=== PATIENT | male | born 1960 | race Caucasian/White ===

== ENCOUNTER 2017-03-12 06:31 | Day surgery (SDC) | payer OTHER ==
[2017-03-11 15:05] VITALS: BMI 32.5
[2017-03-12] VITALS (13 sets, daily range): BP systolic 105–117; BP diastolic 76–85; PULSE 72–76; RESP 12–20; Ht 175.3 cm; Wt 100.3 kg
[~2017-03-12] VITALS: Ht 175.3 cm; Wt 100.3 kg
[~2017-03-12 06:31] MED LIST: AMLO5TAB4 PO; LORA5TAB4 PO; LOSA100T47 PO; METF500T PO; SIMV20TA PO
[2017-03-12] MEDS ORDERED: ONDANSETRON 4 MG INJ IV PRN (09:00)
[2017-03-12] MEDS ORDERED: METOCLOPRAMIDE 10 MG INJ IV PRN (09:00)
[2017-03-12] MEDS ORDERED: FENTAnyl 50 MCG/ML VIAL IV PRN ×2 (09:00)
[2017-03-12] MEDS ORDERED: HYDROmorphONE (0.2 MG/ML) 10ML SYG IV PRN ×2 (09:00)
[2017-03-12] MEDS ORDERED: LABETALOL HCL 20MG INJ IV PRN (09:00)
[2017-03-12] MEDS ORDERED: MEPERIDINE 25 MG INJ IV PRN (09:00)
[2017-03-12] MEDS ORDERED: DIPHENHYDRAMINE 50 MG INJ IV PRN (09:00)
--- NOTE | 2017-03-12 09:05 | HPN ---
Date/Time of Note Date/Time of Note DATE: 03/12/17 TIME: 09:05 Interval H&P Admission Note Pt. seen H&P reviewed: No system changes MIHAI PRYOR DPM Mar 12, 2017 09:05
[2017-03-12] MEDS ORDERED: POVIDONE IODINE 10% 28.4 GM OINT ONE (09:06)
[2017-03-12] MEDS ORDERED: BUPIVACAINE 0.5% (SDV) 30 ML INJ ONE (09:06)
[2017-03-12] MEDS ORDERED: BUPIVACAINE 0.5% (MPF) 30 ML INJ EPI ONE (09:40)
[2017-03-12] MEDS ORDERED: SUCCINYLCHOLINE CHLORIDE 100 MG/5 ML SYG IV ONE (09:49)
[2017-03-12] MEDS ORDERED: LIDOCAINE 2% (SDV) 5 ML INJ ONE (09:49)
[2017-03-12] MEDS ORDERED: CEFAZOLIN 1 GM INJ ONE (09:49)
[2017-03-12] MEDS ORDERED: ROCURONIUM 50 MG INJ ONE (09:49)
[2017-03-12] MEDS ORDERED: PROPOFOL 20 ML ONE (09:49)
[2017-03-12] MEDS ORDERED: FENTAnyl 50 MCG/ML VIAL ONE (09:49)
[2017-03-12] MEDS ORDERED: SUGAMMADEX SODIUM 200 MG/2 ML VIAL IV ONE (09:50)
--- NOTE | 2017-03-12 10:15 | SIPON ---
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
--- NOTE | 2017-03-12 10:15 | SIPON ---
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
--- NOTE | 2017-03-12 10:15 | SIPON ---
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
--- NOTE | 2017-03-12 13:17 | PREOPHP ---
DATE OF ADMISSION: 03/12/2017 HISTORY OF PRESENT ILLNESS: The patient is being admitted to the hospital for elective foot surgery. Palliative treatment, unsuccessful. The patient has been explained surgery, complications and alternatives. The patient is having pain on the plantar surface of the hallux on the right foot. The patient states that he is not allergic to any medicine. He taking medicine for blood pressure and cholesterol, diabetes. No heart or lung, liver, kidney, thyroid problems, and negative for alcohol. Does not smoke. See any other pertinent history in upper extremity physical exam, by Dr. Stuart. Lower extremity physical exam shows a DP equal and regular. Neurological negative for pathology. Dermatological negative for pathology. Musculoskeletal, x-ray findings show plantar exostosis excess rebone IP joint hallux, right. FINAL DIAGNOSIS: Accessory bone with exostosis, interphalangeal joint, hallux, right. Dictated By: Kelvin Santana DPM /[email or web address]/kendrick /Document#: [id number] EMILY
--- NOTE | 2017-03-12 13:17 | PREOPHP ---
DATE OF ADMISSION: 03/12/2017 HISTORY OF PRESENT ILLNESS: The patient is being admitted to the hospital for elective foot surgery. Palliative treatment, unsuccessful. The patient has been explained surgery, complications and alternatives. The patient is having pain on the plantar surface of the hallux on the right foot. The patient states that he is not allergic to any medicine. He taking medicine for blood pressure and cholesterol, diabetes. No heart or lung, liver, kidney, thyroid problems, and negative for alcohol. Does not smoke. See any other pertinent history in upper extremity physical exam, by Dr. Stuart. Lower extremity physical exam shows a DP equal and regular. Neurological negative for pathology. Dermatological negative for pathology. Musculoskeletal, x-ray findings show plantar exostosis excess rebone IP joint hallux, right. FINAL DIAGNOSIS: Accessory bone with exostosis, interphalangeal joint, hallux, right. Dictated By: Kelvin Santana DPM /[email or web address]/kendrick /Document#: [id number] EMILY
--- NOTE | 2017-03-12 13:17 | PREOPHP ---
DATE OF ADMISSION: 03/12/2017 HISTORY OF PRESENT ILLNESS: The patient is being admitted to the hospital for elective foot surgery. Palliative treatment, unsuccessful. The patient has been explained surgery, complications and alternatives. The patient is having pain on the plantar surface of the hallux on the right foot. The patient states that he is not allergic to any medicine. He taking medicine for blood pressure and cholesterol, diabetes. No heart or lung, liver, kidney, thyroid problems, and negative for alcohol. Does not smoke. See any other pertinent history in upper extremity physical exam, by Dr. Stuart. Lower extremity physical exam shows a DP equal and regular. Neurological negative for pathology. Dermatological negative for pathology. Musculoskeletal, x-ray findings show plantar exostosis excess rebone IP joint hallux, right. FINAL DIAGNOSIS: Accessory bone with exostosis, interphalangeal joint, hallux, right. Dictated By: Kelvin Santana DPM /[email or web address]/kendrick /Document#: [id number] EMILY
--- NOTE | 2017-03-12 13:31 | OPR ---
DATE OF OPERATION: 03/12/2017 PREOPERATIVE DIAGNOSIS: Accessory bone with exostosis interphalangeal joint hallux, right. POSTOPERATIVE DIAGNOSIS: Accessory bone with exostosis interphalangeal joint hallux, right. SURGERY: Partial ostectomy IP joint plantar hallux right. SURGEON: Kelvin Santana DPM OPERATIVE PROCEDURE: The patient was brought to the surgical suite, placed in supine position. The patient was under general anesthesia. The patient had cardiac monitoring. The patient had pneumatic cuff at mid thighs. Prepped with sterile prep and drape, and findings consistent with a pre and postop diagnosis. The first incision was a longitudinal incision across the plantar surface of the hallux of the right foot using sharp and blunt dissection. The incision was carried deep. The IP joint, medial plantar was freed of its attachment and a partial ostectomy with removal of part of the accessory bone were performed. The patient's preoperative condition having been relieved. The area was then cleansed and coaptated using 3-0 Vicryl subcutaneously and the skin was coaptated using 5-0 nylon. The area was then injected with 0.5 percent Marcaine to prolong anesthesia and a dressing of half-inch Steri-Strips, Betadine ointment, 4x4s impregnated with Betadine solution and Megan with an outer layer of Coban made into a semicompressive dressing. The patient tolerated surgery well, was returned to recovery room in satisfactory condition. There was minimum blood loss and no complications. Dictated By: Kelvin Santana DPM /[email or web address]/kendrick /Document#: [id number] EMILY
== END 2017-03-18 10:09 | disposition home or self-care (01) ==
LOC: SDS 06:31
PROVIDERS: ATTEND Podiatrist
DX: M89.9 Disorder of bone, unspecified (principal); I10 Essential (primary) hypertension; E11.9 Type 2 diabetes mellitus without complications; E66.01 Morbid (severe) obesity due to excess calories
CPT/HCPCS: 28124; 82962; 88304; 88311; J0690; J3010; L3260; J1170

== ENCOUNTER 2017-12-07 06:13 | Day surgery (SDC) | END 2017-12-07 11:21 | disposition home or self-care (01) ==

== ENCOUNTER 2018-02-22 14:04 | Day surgery (SDC) | END 2018-02-22 18:30 | disposition home or self-care (01) ==

== ENCOUNTER 2018-02-23 23:07 | Emergency (ER) | END 2018-02-24 05:50 | disposition home or self-care (01) ==